=== PATIENT | male | born 1980 | race Caucasian/White ===

== ENCOUNTER 2024-05-19 18:28 | Emergency (ER) | payer OTHER, SELFPAY ==
--- NOTE | ~2024-05-19 | US_ITS ---
CLINICAL HISTORY: R testicular pain rad R flank RLQ US Scrotum with Doppler Comparison: None Findings: Right testicle normal echotexture, 4.7 x 2.6 x 3.2 cm. Along the lateral aspect of the right testicle there is an exophytic 3 mm anechoic cystic structure which appears simple and without solid component. Left testicle normal echotexture, 4.2 x 2.5 x 2.8 cm. Normal color flow and arterial/venous spectral tracing of both testicles. Normal epididymal vascularity. There is a 5 mm right epididymal head cyst. No varicoceles. No hydroceles. IMPRESSION: 1. No evidence of torsion. 2. Incidental note of right epididymal head cyst as well as 3 mm right testicular or peritesticular cyst. This document has been electronically signed by: Victor M Waddell MD on 05/19/2024 21:00:14
--- NOTE | ~2024-05-19 | CT_ITS ---
CLINICAL HISTORY: RLQ pain CT abdomen and pelvis without contrast Comparison: None Findings: Atelectasis. Hepatomegaly with steatosis. Cholelithiasis noted, without significant wall thickening or pericholecystic stranding. Bile ducts are unremarkable. Splenules. Mild atrophy of the pancreas proximally. Mild peripancreatic adenopathy example series 7, image 41 measuring 1.4 cm, nonspecific. Nonobstructive subcentimeter left lower pole renal calculi measuring no more than 3 mm. Colonic diverticulosis with peridiverticular inflammatory changes and fluid stranding noted in the sigmoid colon, consistent with diverticulitis. No evidence of free air or peridiverticular collections. Diffuse sigmoid and distal descending colonic mural thickening, may reflect superimposed colitis. No bowel obstruction. Prominent inguinal nodes and retroperitoneal nodes, nonspecific. Infrarenal abdominal aortic calcified plaque disease. Fat containing inguinal hernias. Prostatomegaly noted. Circumferential bladder wall thickening. No acute fracture. Osteopenia with diffuse multilevel spondylosis. Posterior disc osteophyte complexes at L4-L5 and L5-S1. IMPRESSION: 1. Uncomplicated sigmoid diverticulitis. 2. Possible superimposed distal colitis. 3. Nonobstructive subcentimeter left lower pole renal calculi measuring no more than 3 mm. 4. Circumferential bladder wall thickening may be related to degree of underdistention or mild cystitis. 5. Additional findings described, please see above. This document has been electronically signed by: Bradley Parker MD on 05/20/2024 02:51:13
[2024-05-19 19:27] VITALS: BP 117/63; PULSE 105; RESP 18; TEMP 37.3; O2SAT 97; BMI 36.2
--- NOTE | 2024-05-19 19:27 | ED_ITS ---
HPI - Male Genitourinary General Chief complaint: Urogenital-Male Stated complaint: pain in groin area Time Seen by Provider: 05/20/24 02:05 Source: patient Mode of arrival: ambulatory Limitations: no limitations History of Present Illness ED Provider: Dr. Anna Gonzales HPI Narrative: Patient comes to the emergency room complaining of right lower quadrant pain radiating towards the groin area. Patient states the pain started last night. Patient states that his urine looks a bit bloody, dark brown. Patient states that he has had kidney stone in the past. Patient complaining of nausea, no vomiting or diarrhea. No dysuria. Patient states he had an episode of fever and chills Related Data Previous Rx's ?Medication ?Instructions ?Recorded levofloxacin 500 mg tablet 500 mg PO DAILY #9 tabs 05/20/24 metronidazole 500 mg tablet 500 mg PO BID #19 tabs 05/20/24 oxycodone 5 mg tablet 5 mg PO BID PRN pain #7 tabs 05/20/24 polyethylene glycol 3350 17 gram 17 g PO BID #14 ea 05/20/24 oral powder packet (Miralax) Allergies Allergy/AdvReac Type Severity Reaction Status Date / Time No Known Allergies Allergy Unverified 05/19/24 19:29 Review of Systems 2 Review of Systems: Constitutional : No Weight loss, No Fever, No Chills, No Night Sweats, No Fatigue, No Malaise ENT/Mouth : No Hearing loss, No Ear Pain, No Nasal Congestion, No Sinus Pain, No Hoarseness, No sore throat, No Rhinorrhea, No Swallowing Difficulty Eyes: No Eye Pain, No Swelling, No Redness, No Foreign Body, No Discharge, No Vision Changes Cardiovascular : No Chest Pain, No SOB, No Dyspnea on Exertion, No Orthopnea, No Edema, No Palpitations Respiratory : No Cough, No Sputum, No Wheezing, No Smoke Exposure, No Dyspnea Gastrointestinal : Complaining of Nausea, No Vomiting, No Diarrhea, No Constipation, No abdominal Pain, No Hematochezia, No Melena Genitourinary : no irregular bleeding, No Dysuria, No Urinary Frequency, complaining of dark colored urine, possibly blood? No Urinary Incontinence, No Urgency, No Flank Pain, No Urinary Flow Changes, No Hesitancy Musculoskeletal : No joint pain, No Myalgias, No Joint Swelling Skin : No Skin Lesions, No rash Neuro : No Weakness, No Numbness, No Paresthesias, No Loss of Consciousness, No Dizziness, No Headache Psych : No Anxiety/Panic, No Depression, No SI/HI/AH/VH, No Social Issues, Heme/Lymph: No Bruising, No Bleeding,No Lymphadenopathy Endocrine : No Polyuria, No Polydipsia, No Temperature Intolerance [facility] Past Medical History Medical History (Updated 05/20/24 @ 03:32 by Anna Gonzales MD) Kidney stones Social History Social History Smoked in Last 30 Days: Yes Use of substances other than those prescribed or required for medical reasons: Yes Substance Use Type: Marijuana Substance Use Frequency: Daily Advance Directives: No Advance Directives Information Provided: Yes Do you have a plan to hurt others: No Plan Physical Exam 2 Vital Signs: Vital Signs: Last Vital Signs Temp 100.8 F H 05/19/24 23:24 Pulse 94 05/19/24 23:24 Resp 16 05/19/24 23:24 BP 139/67 05/19/24 23:24 Pulse Ox 96 05/19/24 23:24 O2 Del Method Room Air 05/19/24 23:24 BMI result Body Mass Index 36.2 Const: Other: Appearance: Alert. Oriented X3. No acute distress. Eyes: Pupils equal, round and reactive to light. ENT: Pharynx normal. Neck: Normal inspection. Neck supple. No lymph nodes noted. No crepitus CVS: Normal heart rate and rhythm. Pulses normal. Normal S1 and S2 Respiratory: No respiratory distress. Breath sounds normal. No Wheezing. No rales Abdomen: Soft , mild to moderate pain to palpation over left lower quadrant, positive CVA tenderness in the right No rigidity. No distention. Skin: Skin warm and dry. Normal skin color. Normal skin turgor. Extremities: No lower extremity edema. No Lacerations. No Rash Neuro: Oriented X 3. No motor deficit. No sensory deficit. Moving all extremities. No slurred speech. CN 2 through 12 grossly intact Psych: calm, cooperative, normal affect Course Course Course Narrative: This is a Rapid Medical Exam performed in triage by Beth Ascencio PA-C. Full HPI, ROS and PE to be performed by primary ED provider. 44-year-old male with a past medical history of diverticulitis presenting to the ED c/o R lower abd pain radiating to R groin and back since last night. Reports some constipation. Last BM last night. Denies urinary symptoms. PE: abdomen soft with RLQ abd ttp, no rebound or guarding, No CVAT Plan: labs, UA Medications Administered Discontinued Medications Generic Name Dose Route Start Last Admin Trade Name Catia PRN Reason Stop Dose Admin Acetaminophen 975 mg 05/19/24 23:25 05/19/24 23:38 Acetaminophen 325 Mg Tablet PO 05/19/24 23:26 975 mg ONCE ONE Administration Medical Decision Making Medical Decision Making [facility] Narrative: Patient's white blood cell count 15.2, rest of hematology within normal limits, chemistry within normal limits, magnesium a bit low at 1.4, being replaced p.o., urinalysis positive for large amount of blood leukocyte esterase, negative for nitrite for bacteria He was scrotum with Doppler: No evidence of torsion CT scan of the abdomen colon diverticulitis with no perforation. Patient states that overall he feels better but still a bit uncomfortable. Patient was given p.o. oxycodone. I discussed with the patient that we could admit him for pain control, IV fluids, antibiotics. Patient states that the last time that he had diverticulitis, he was sent home and did well. Patient prefers to go home Patient was given p.o. meds including antibiotics and oxycodone, patient requesting to be discharged home. Sounds reasonable. Patient instructed to return to emergency room if he has any worsening abdominal pain. Differential Diagnosis Differential Diagnoses: The differential diagnosis associated with the presentation includes (Appendicitis, ureterolithiasis, diverticulitis) Admission/Observation Consideration of admission/observation: Escalation of care including admission/observation considered (Admission was offered, patient prefers to go home) Lab Data [facility] Lab Attestation statement: I reviewed the patient's lab results. 05/19/24 19:39 05/19/24 19:39 Labs: Lab Results 05/19/24 Range/Units 19:39 WBC 15.2 H (4.8-10.8) X10*3/uL RBC 5.57 (4.60-5.80) X10*6/uL Hgb 16.0 (14.0-18.0) g/dl Hct 47.7 (42.0-52.0) % MCV 85.6 (80.0-98.0) fL MCH 28.7 (27.0-33.0) pg MCHC 33.5 (31.0-36.0) g/dl RDW 13.2 (11.0-16.0) % Plt Count 175 (160-400) X10*3/uL MPV 11.4 (9.4-12.4) fL Immature Gran % (Auto) 0.5 H (0.0-0.4) % Neut % (Auto) 55.9 (45-73) % Lymph % (Auto) 33.9 (20-40) % Johnson % (Auto) 8.5 (2-11) % Eos % (Auto) 0.6 (0-4) % Baso % (Auto) 0.6 (0-2) % Lymph # (Auto) 5.2 H (1.2-4.9) X10*3/uL Johnson # (Auto) 1.3 H (0.1-1.2) X10*3/uL Eos # (Auto) 0.1 (0.0-0.4) X10*3/uL Baso # (Auto) 0.1 (0.0-0.2) X10*3/uL Abs Immat Gran (auto) 0.08 H (0.00-0.03) X10*3/uL Absolute Neuts (auto) 8.5 H (2.0-8.3) x10*3/uL Absolute Nucleated RBC 0.000 (0.0-0.012) X10*3/uL Nucleated RBC % (auto) 0.0 (0.0-0.2) /100WBC Smear Tech's Comments VERIFIED Sodium 139 (135-145) mmol/L Potassium 3.7 (3.3-5.1) mmol/L Chloride 103 (96-108) mmol/L Carbon Dioxide 25 (22-29) mmol/L Anion Gap 15 (12-20) BUN 9 (9-16) mg/dL Creatinine 0.72 (0.5-1.4) mg/dL Estim Creat Clear Calc 154.3 Estimated GFR > 60 Random Glucose 179 H (60-115) mg/dL Calcium 9.6 (8.4-10.2) mg/dL Magnesium 1.4 L* (1.6-2.6) mg/dL Total Bilirubin 0.7 (0.0-1.0) mg/dL Direct Bilirubin 0.2 (0.0-0.5) mg/dL AST 48 H (5-37) U/L ALT 75 H (0-40) U/L Alkaline Phosphatase 72 (39-117) U/L Total Protein 7.9 (6.5-8.0) g/dL Albumin 4.3 (3.5-5.0) g/dL Lipase 109 H (8-78) U/L Urine Color Dark Yellow Urine Appearance Clear Urine pH 5.0 (5.0-9.0) Ur Specific [place] 1.025 (1.005-1.025) Urine Protein Trace (Neg-Trace) mg/dL Urine Glucose (UA) 500 H (Negative) mg/dL Urine Ketones Trace (Negative) mg/dL Urine Blood Large (3+) H (Negative) Urine Nitrite Negative (Negative) Ur Leukocyte Esterase Trace H (Negative) Urine RBC 11-20 H (0-2) /HPF Urine WBC 0-5 (0-5) /HPF Ur Squamous Epith Cells 0-2 (0-2) /HPF Urine Bacteria None Seen (None Seen) Hyaline Casts 0-2 (0-2) /LPF Independent Interpretation I performed an independent interpretation of an: Ultrasound and CT Scan Radiology Impression Discussion of test interpretation with radiology: I have reviewed the radiologist's reading. Radiologist Impression: Right testicle normal echotexture, 4.7 x 2.6 x 3.2 cm. Along the lateral aspect of the right testicle there is an exophytic 3 mm anechoic cystic structure which appears simple and without solid component. Left testicle normal echotexture, 4.2 x 2.5 x 2.8 cm. Normal color flow and arterial/venous spectral tracing of both testicles. Normal epididymal vascularity. There is a 5 mm right epididymal head cyst. No varicoceles. No hydroceles. IMPRESSION: 1. No evidence of torsion. 2. Incidental note of right epididymal head cyst as well as 3 mm right testicular or peritesticular cyst. Critical Care Time Critical Care Time Critical Care Time: Yes Total Critical Care Time: 60 Attestation: I have personally provided critical care time. Time includes review of lab data, radiology results, discussion with consultants, and monitoring for potential decompensation. Intervention performed as documented. Discharge Plan Discharge Clinical Impression: Diverticulitis Patient Disposition: Home, Self-Care Instructions: Diverticulitis (ED), Diverticulitis Diet (ED) Additional Instructions: Please follow-up with your primary care physician tomorrow. If you have any worsening or new symptoms, please return to the emergency room or call 911 Prescriptions: New levofloxacin 500 mg tablet 500 mg PO DAILY Qty: 9 0RF metronidazole 500 mg tablet 500 mg PO BID Qty: 19 0RF oxycodone 5 mg tablet 5 mg PO BID PRN (Reason: pain) Qty: 7 0RF Rx Instructions: Partial Fill upon patient request. polyethylene glycol 3350 [Miralax] 17 gram powder in packet 17 g PO BID Qty: 14 1RF Stand Alone Forms: Work/School Release Print Language: Slovak
[2024-05-19 19:46] LABS: Basophils Absolute Auto 0.1 X10*3/uL (0.0-0.2); Basophils Percent Auto 0.6 % (0-2); Eosinophils Absolute Auto 0.1 X10*3/uL (0.0-0.4); Eosinophils Percent Auto 0.6 % (0-4); Hematocrit 47.7 % (42.0-52.0); Imm Gran Abs Auto 0.08 X10*3/uL (0.00-0.03); Imm Gran Pct Auto 0.5 % (0.0-0.4); Lymphocytes Absolute Auto 5.2 X10*3/uL (1.2-4.9); Lymphocytes Percent Auto 33.9 % (20-40); MANUAL DIFF FLAG SCAN; Mean Corpuscular HGB Conc 33.5 g/dl (31.0-36.0); Mean Corpuscular Hemoglobin 28.7 pg (27.0-33.0); Mean Corpuscular Volume 85.6 fL (80.0-98.0); Mean Platelet Volume 11.4 fL (9.4-12.4); Monocytes Absolute Auto 1.3 X10*3/uL (0.1-1.2); Monocytes Percent Auto 8.5 % (2-11); Neutrophils Absolute Auto 8.5 x10*3/uL (2.0-8.3); Neutrophils Percent Auto 55.9 % (45-73); Platelet Count 175 X10*3/uL (160-400); Red Blood Count 5.57 X10*6/uL (4.60-5.80); Red Cell Distribution Width 13.2 % (11.0-16.0); SCAN SMEAR FLAG 1; White Blood Count 15.2 X10*3/uL (4.8-10.8)
[2024-05-19 19:48] LABS: Appearance Urine Clear; Color Urine Dark Yellow; Glucose Urine UA 500 mg/dL (Negative); Leukocyte Esterase Urine Trace (Negative); Nitrite Urine Negative (Negative); Specific Gravity - Urine 1.025 (1.005-1.025); UMIC TRIGGER UACC YES; Urine Blood Large (3+) (Negative); Urine Ketones Trace mg/dL (Negative); Urine Protein Trace mg/dL (Neg-Trace)
[2024-05-19 19:55] LABS: Bacteria Urine None Seen (None Seen); Hyaline Casts Urine 0-2 /LPF (0-2); Squamous Epithelial Cell Urine 0-2 /HPF (0-2); WBC Urine 0-5 /HPF (0-5)
[2024-05-19 20:13] LABS: Alanine Aminotransferase 75 U/L (0-40); Albumin Level 4.3 g/dL (3.5-5.0); Alkaline Phosphatase 72 U/L (39-117); Anion Gap 15 (12-20); Aspartate Amino Transferase 48 U/L (5-37); Bilirubin Direct 0.2 mg/dL (0.0-0.5); Bilirubin Total 0.7 mg/dL (0.0-1.0); Blood Urea Nitrogen 9 mg/dL (9-16); Calcium 9.6 mg/dL (8.4-10.2); Carbon Dioxide 25 mmol/L (22-29); Chloride 103 mmol/L (96-108); Creatinine Clr Calc Pharmacy 154.3; Estimated Glomerular Filt Rate > 60; Glucose Random 179 mg/dL (60-115); Lipase 109 U/L (8-78); Magnesium 1.4 mg/dL (1.6-2.6); Potassium 3.7 mmol/L (3.3-5.1); SLIDE REVIEW VERIFIED; Sodium 139 mmol/L (135-145); Total Protein 7.9 g/dL (6.5-8.0)
--- OUTSIDE RECORDS SUMMARY | 2024-05-19 21:44 | XMS_ITS | Clinical Summary ---
Author Organization [facility] [place] Address [address] [place] [address] Care Team Providers Care Float Nurse Name Role Phone Ramez Batista MD Primary Care Provider Allergies No known active allergies Medications blood-glucose meter kit Blood Glucose Monitoring Suppl (FREESTYLE LITE) Device Use to test blood sugar daily 0 Active FREESTYLE LANCETS MISC Use to check blood glucose once daily 2 Active fenofibrate (TRICOR) 145 mg tablet Take 1 tablet (145 mg total) by mouth 1 (one) time each day. 4 Active metFORMIN (GLUCOPHAGE) 500 mg tablet Take 2 tablets (1,000 mg total) by mouth 2 (two) times a day with meals. 4 Active blood sugar diagnostic (FreeStyle Lite Strips) test strip TEST once daily 2 Active glipiZIDE (GLUCOTROL) 5 mg tablet Take 2 tablets (10 mg total) by mouth 2 (two) times a day before meals. 180 each 1 5 Active dulaglutide (TRULICITY) 3 mg/0.5 mL pen injector injectionIndic ations:Type 2 diabetes mellitus with microalbuminur ia, without long-term current use of insulin (CMS/HCC V24, CMS/HCC V28) Inject 0.5 mL (3 mg total) under the skin every 7 (seven) days. Increase in dose 2 mL 1 5 Active dulaglutide (Trulicity) 1.5 mg/0.5 mL pen injector injectionIndic ations:Type 2 diabetes mellitus with microalbuminur ia, without long-term current use of insulin ([facility] V24, [facility] V28) Inject 0.5 mL (1.5 mg total) under the skin every 7 (seven) days. Increase in dose 2 mL 1 5 04/21/19 25 Discontinu ed(Dose adjustment ) Active Problems Problem Noted Date Diagnosed Date Elevated liver enzymes 11/12/2023 Fatty liver 11/12/2023 Gallstones 11/12/2023 Mixed hyperlipidemia 03/11/2023 Obesity (BMI 35.0-39.9 without comorbidity) 02/11 Transaminitis 03/11/2023 Nocturnal hypoxia 01/20/2022 JAVAD on CPAP 01/20/2022 Overview (11/12/2023): [facility] Home Sleep Apnea Test: Date 01/06/2022; BMI 38; RDI/ AHI 14; average oxygen saturation 90% (lowest 82% with saturations <88% for 5% or more of study) - Obstructive Sleep Apnea - mild; with sleep related hypoventilation by 2021 home sleep apnea test. Last Assessment & Plan: 02/24/2022 CPAP 6-16 cm with [facility]. 06/27/2022 CPAP 6-9 cm with [facility]. 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 9) with comorbidity ([facility] V24, [facility] V28) 07/29/2016 Tobacco use disorder 01/22/2015 Diabetes mellitus with compl ication ([facility] V24, [facility] V28) 01/17/2013 Overview (11/12/2023): Uncontrolled diabetes mellitus with eye complications Encounters Date Type Department Care Team Description 04/20/2024 2:30 PM EDT Telemedicine Adult Medicine [address] [phone] Rosario Ku PharmD Type 2 diabetes mellitus with microalbuminuria, without long-term current use of insulin ([facility] V24, [facility] V28) (Primary Dx) 03/23/2024 Telephone Adult Medicine [address] [phone] Ramez Batista MD from Last 3 Months Immunizations Name Administration Dates Next Due Influenza Quadravalent, MDCK , 0.5ml, preservative free (Flucelvax) 6mo and older 12/01/2018,12/15/2017 Influenza Quadravalent, MDCK , 0.5ml, with preservative (Flucelvax) 6mo and older 12/23/2016 Influenza trivalent, with pr eservative (Fluzone; Afluria) 6mo and older 11/15/2019,01/15/2016,10/24/2014,01/17 Pneumococcal polysaccharide 23 valent (Pneumovax 23) 2yo and older 04/18/2013 Tdap Tetanus diptheria acell ular pertussis (Boostrix; Adacel) 7yo and older 04/18/2013 Surgical History Surgery Date Site/Laterality Comments OTHER SURGICAL HISTORY PROCEDURE: DENIES PREVIOUS SURGERY Medical History Medical History Date Comments Type II or unspecified type diabetes mellitus with unspecified complication, not stated as uncontrolled DX:Type II or unspecified t ype diabetes mellitus with unspecified complication, not stated as uncontrolled Hyperlipidemia DX:Hyperlipidemi a Kidney stone 05/2018 DX:Kidney stone; COMMENT: right 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 DX:Preglaucoma Elevated liver enzymes DX:Elevat ed liver enzymes Gallstones DX:Gallstones Fatty liver DX:Fatty liver Family History Medical History Relation Name Comments No Known Problems Aunt No Known Problems Brother Asthma Father Hypertension Father No Known Problems Maternal Grandfather Glaucoma Maternal Grandmother Hypertension Mother No Known Problems Other No Known Problems Paternal Grandfather No Known Problems Paternal Grandmother No Known Problems Sister 1 No Known Problems Sister 2 No Known Problems Sister 3 No Known Problems Sister 4 No Known Problems Uncle Blindness Neg Hx Cataracts Neg Hx Macular degeneration Neg Hx Strabismus Neg Hx Relation Name Status Comments Aunt Brother Alive Father Alive htn Maternal Grandfather Maternal Grandmother Alive dm Mother Alive htn Other Paternal Grandfather Paternal Grandmother Sister 1 Alive Sister 2 Alive Sister 3 Alive Sister 4 Alive Uncle Social History Tobacco Use Types Packs/Day Years Used Date Smoking Tobacco: Every Day Cigarettes Smokeless Tobacco: Never Alcohol Use Standard Drinks/Week Comments Yes 0 (1 standard drink = 0.6 oz pur e alcohol) Housing Instability Answer Date Recorde d Are you worried that in the next 2 months you may not have stable housing? No 01/13/2024 Food Access & Nutrition Answer Date Rec orded Do you have access to a vari ety of food including fruits and vegetables? No 01/13/2024 Access to Healthcare Answer Date Record ed Within the last 3 months, ho w many times did you visit the emergency department for your medical care? 0 01/13/2024 Health Literacy Answer Date Recorded How often do you need to hav e someone help you when you read instructions, pamphlets, or other written material from your doctor or pharmacy? Rarely 01/13/2024 Caregiver: How often do you need to have someone help you when you read instructions, pamphlets, or other written material from your doctor or pharmacy? Not on file 01/13/2024 Financial Risk Answer Date Recorded How hard is it for you to pa y for the very basics like food, housing, medical care, and air conditioning / heating? Hard 01/13/2024 Transportation Answer Date Recorded Has the lack of transportati on kept you from meetings, work, or from getting things needed for daily living? No Has the lack of transportati on kept you from medical appointments or from getting medications? No 01/13/2024 Social Isolation Answer Date Recorded How often do you feel lonely or isolated from th ose around you? Never 01/13/2024 Food Risk Answer Date Recorded Within the past 12 months we worried whether our food would run out before we got money to buy more. Often true 024 Within the past 12 months th e food we bought just didn't last and we didn't have money to get more. Sometimes true 01/13/2024 Dependent Care Answer Date Recorded Do you need help finding or paying for care for your loved ones. For example, child welfare specialist or elderly care for an older adult? No 01/13/2024 Education Answer Date Recorded Do you think completing more education or training, like finishing a GED, going to college, or learning a trade, would be helpful for you? No 01/13/2024 Employment and Income Answer Date Recor ded During the last four weeks, have you been actively looking for work? No 01/13/2024 Living Situation Answer Date Recorded What is your living situation? 1 03/15/2023 Sex and Gender Information Value Date Recorded Sex Assigned at Not on file Legal Sex Male 9:58 AM EDT Gender Identity Not on file Sexual Orientation Not on file Obstetrics History Last Filed Vital Signs Vital Sign Reading Time Taken Comments Blood Pressure 122/70 09/21/2023 3:53 PM EDT Pulse 94 09/21/2023 3:53 PM EDT Temperature - - Respiratory Rate - - Oxygen Saturation - - Inhaled Oxygen Concentration - - Weight 106 kg (234 lb) 10/19/2023 2:56 PM EDT Height 172.7 cm (5' 8 ) 10/19/2023 2:56 PM EDT Body Mass Index 35.58 10/19/2023 2:56 PM EDT Plan of Treatment Upcoming Encounters Date Type Department Care Team (Late st Contact Info) Description 06/29/2024 3:30 PM EDT Medication Management Adult Medicine [address] [phone] Rosario Ku, PharmD [address] [place] [address] Health Maintenance Due Date Last Done Comments Diabetes: Annual Foot Exam 1989 Hepatitis A Vaccines (1 of 2 - Risk 2-dose series) 1998 Hepatitis B Vaccines (1 of 3 - 19+ 3-dose series) 1998 Pneumococcal Vaccine: Pediatrics (0 to 5 Years) and At-Risk Patients (6 to 64 Years) (2 of 2 - PCV) 04/18/2014 04/18/2013, 06/20/2009 Colorectal Cancer Screening: Colonoscopy 07/10/2019 HIV Screening 07/10/2019 Hepatitis C Screening 07/10/2019 DTaP,Tdap,and Td Vaccines (3 - Td or Tdap) 04/19/2023 04/18/2013, 02/11/2010 Diabetes: Blood Sugar Control Test (HGBA1C) 09/10/2023 03/12/2023 COVID-19 Vaccine ( season) 2023 01/11/2021, 05/11/2020, 04/13/2020 Diabetes: Annual Retina Eye Exam 02/17/2024 02/16/2023 Diabetes: Annual Urine Albumin-Creatinine Ratio (uACR) 03/12/2024 03/12/2023 Diabetes: Annual GFR (Glomerular Filtration Rate) 07/23/2024 07/24/2023, 07/24/2023 Influenza Vaccine (Season Ended) 2024 11/15/2019, 12/01/2018, 12/15/2017, Additional history exists Depression Screening 01/12/2025 01/13/2024 Social Influencers of Health Screening 01/12/2025 01/13/2024 Cholesterol Screening (Lipid Panel) 07/23/2028 07/24/2023, 07/24/2023, 07/24/2023 HIB Vaccines Aged Out No longer eligi ble based on patient's age to complete this topic HPV Vaccines Aged Out No longer eligi ble based on patient's age to complete this topic IPV Vaccines Aged Out No longer eligi ble based on patient's age to complete this topic MMR Vaccines Aged Out No longer eligi ble based on patient's age to complete this topic Meningococcal ACWY Vaccine Aged Out N o longer eligible based on patient's age to complete this topic Meningococcal B Vaccine Aged Out No l onger eligible based on patient's age to complete this topic RSV Immunization Patients Under 20 months Aged Out No longer eligible based on patient's age to complete this topic Varicella Vaccines Aged Out No longer eligible based on patient's age to complete this topic Procedures Procedure Name Priority Date/Time Associated Diagnosis Comments HM ANNUAL BMP BLOOD TEST Routine 07/24/2023 LIPID PANEL Routine 07/24/2023 HM URINE ALBUMIN CREATININE RATIO Routine 03/12/2023 HEMOGLOBIN A1C Routine 03/12/2023 DIABETES EYE EXAM Routine 02/16/2023 from Last 3 Months or Most Recently Relevant to Health Maintenance Results * Annual BMP Blood Test (07/24/2023) [facility] Annual BMP Blood Test Abstracted Result [facility] HEALTH MAINTENANCE Final Result * (ABNORMAL) Lipid panel (07/24/2023) [facility] LDL/HDL Ratio 11(A) 0 - 4 Triglycerides 2,005(A) 0 - 150 mg/dL Comment:Triglyceride value i s >= 500. ??Calculated LDL is not meaningful. ??Direct LDL has been added. Cholesterol 193 0 - 200 mg/dL HDL 17(A) >=40 mg/dL LDL Cholesterol 42 0 - 100 mg/dL Blood Venous blood specimen / Unknown Result [facility] LAB BLOOD ORDERABLES Sanjana l Result * Urine Albumin Creatinine Ratio (03/12/2023) [facility] Urine Albumin Creatinine Ratio Abstracted Result [facility] HEALTH MAINTENANCE Final Result * (ABNORMAL) Hemoglobin A1c (03/12/2023) [facility] Hemoglobin A1C 12.5(A) <=6.5 % Blood Venous blood specimen / Unknown Result [facility] LAB BLOOD ORDERABLES Sanjana l Result * Diabetes Eye Exam (02/16/2023) [facility] Diabetes: Annual Retina Eye Exam Abstracted Result [facility] HEALTH MAINTENANCE Final Result from Last 3 Months or Most Recently Relevant to Health Maintenance Insurance [facility] [employer] Care Teams Float Nurse Relationship Specialty Start Date End Date Ramez Batista MD [address] [place] [address] PCP - General Internal Medicine 07/03/21
[2024-05-19 23:24] VITALS: BP 139/67; PULSE 94; RESP 16; TEMP 38.2; O2SAT 96
[2024-05-19] MEDS: Acetaminophen 325 MG TABLET 975 MG PO (23:38)
[2024-05-20] MEDS: oxyCODONE HCl Immed Release 5 MG TABLET PO (03:47)
[2024-05-20] MEDS: 0.9 % Sodium Chloride 1,000 ML 999 ML IVCONT (03:47)
[2024-05-20] MEDS: metroNIDAZOLE 500 MG TABLET PO (03:48)
[2024-05-20] MEDS: levoFLOXacin 500 MG TABLET PO (03:48)
[2024-05-20] MEDS: Magnesium Oxide 400 MG TABLET 800 MG PO (03:48)
[2024-05-20] MEDS: ondansetron HCL 4 MG/2 ML VIAL IVPUSH (03:49)
[2024-05-20] MEDS: Ketorolac Tromethamine 30 MG/ML VIAL IVPUSH (03:49)
--- NOTE | 2024-05-20 03:50 | PC.NURSE ---
IV established, pt medicated per MAR. IVF infusing. Pt aware of plan to discharge for 415. Pts SO on the way to pick pt up.
[2024-05-20 04:00] LABS: CT PCR NOT DETECTED (Not Detect.); NG PCR NOT DETECTED (Not Detect.)
[2024-05-20 04:20] VITALS: BP 0/0; PULSE 0; RESP 0; TEMP -17.7; TEMP 0; O2SAT 0
== END 2024-05-20 04:21 | disposition home or self-care (01) ==
PROVIDERS: Physician Assistant; Emergency Provider Emergency Medicine; PCP Internal Medicine
DX: K57.32 Diverticulitis of large intestine without perforation or abscess without bleeding (principal); R10.30 Lower abdominal pain, unspecified; R10.31 Right lower quadrant pain; Z79.899 Other long term (current) drug therapy
CPT/HCPCS: 36415; 74176; 76870; 80048; 80076; 81001; 83690; 83735; 85025; 87491; 87591; 93975; 96374; 96375; 99285; J1885; J2405

== ENCOUNTER → 2024-05-19 19:31 | Outpatient (BNV) | payer OTHER, SELFPAY | PROVIDERS: PCP Internal Medicine; Visit Provider Radiology Diagnostic Radiology | DX: N50.811 Right testicular pain (principal) | CPT/HCPCS: 93975 ==

== ENCOUNTER → 2024-05-20 01:13 | Outpatient (BNV) | payer OTHER, SELFPAY | PROVIDERS: Emergency Provider Emergency Medicine; PCP Internal Medicine; Visit Provider Radiology Diagnostic Radiology | DX: K57.30 Diverticulosis of large intestine without perforation or abscess without bleeding (principal); N20.0 Calculus of kidney; N30.90 Cystitis, unspecified without hematuria | CPT/HCPCS: 74176 ==